=== PATIENT | male | born 1950 | race Caucasian/White ===

== ENCOUNTER 2018-03-18 05:37 | Day surgery (SDC) | payer BC ==
[~2018-03-18 05:37] MED LIST: Buffered Lidocaine 1% SYRIN* 1 ML/SYRINGE INTRADERM ONE
[2018-03-18] MEDS ORDERED: Lactated Ringers 1000 ML Bag* 1,000 ML IV SCH (06:00)
[2018-03-18] MEDS ORDERED: Famotidine IV* 10 MG/ML 2 ML (20 mg) IV ONE (06:00)
[2018-03-18] MEDS ORDERED: ceFAZolin 2 GM PREMIX in ORs 2 GM/50 ML BAG IVPB ONE (06:05)
[2018-03-18] MEDS ORDERED: Famotidine IV* 10 MG/ML 2 ML (20 mg) ONE (06:05)
[2018-03-18] MEDS ORDERED: Ketorolac INJ* 30 MG/ML 1 ML VIAL ONE (07:08)
[2018-03-18] MEDS ORDERED: fentaNYL* 50 MCG/ML 2 ML VIAL (100 MCG VIAL) ONE (07:08)
[2018-03-18] MEDS ORDERED: Lidocaine 0.5%* 50 ML SDV ONE (07:08)
[2018-03-18] MEDS ORDERED: Ondansetron INJ* 2 MG/ML VIAL ONE (07:08)
[2018-03-18] MEDS ORDERED: KETAMINE HCL* 50 MG/ML 10 ML VIAL ONE (07:08)
[2018-03-18] MEDS ORDERED: Midazolam* 1 MG/ML 10 ML VIAL (10 MG) ONE (07:08)
[2018-03-18] MEDS ORDERED: Lidocaine 2% PF * 5 ML VIAL ONE (07:08)
[2018-03-18] MEDS ORDERED: Propofol* 10 MG/ML 20 ML BTL ONE (07:08)
[2018-03-18] MEDS ORDERED: Dexamethasone IV* 4 MG/ML 1 ML (4 MG) ONE (07:08)
[2018-03-18] MEDS ORDERED: Bupivacaine 0.25% SDV PF* 10 ML VIAL INJ ONE (07:21)
[2018-03-18] MEDS ORDERED: ceFAZolin 1 GM ADVAN(*) 1 GM ADDV.VIAL IVPB ONE (07:33)
[2018-03-18 08:34] VITALS: BP 115/56
--- NOTE | 2018-03-19 11:43 | OP ---
DATE OF OPERATION: 03/18/18 - [facility] DATE OF : 52 SURGICAL CARE: Right carpal tunnel. SURGEONF: Benja Matos M.D. ADJUNCT PROFESSOR OF [place] HISTORY: ERIC Egan. ANESTHESIOLOGIST: VISH - Dr. Edu Sotelo. Local anesthetic - Dr. Matos, 0.25% Marcaine with bupivacaine without epinephrine. ANESTHESIA: PRE-OP DIAGNOSIS: Right carpal tunnel syndrome. POST-OP DIAGNOSIS: Right carpal tunnel syndrome. OPERATIVE PROCEDURE: Exploration and decompression of the right median nerve distal forearm, wrist, and hand. COMPLICATIONS: There were no complications. DRAINS: There were no drains. TOURNIQUET: Tourniquet control was utilized on the right forearm. CONDITION: Stable. DISPOSITION: To the recovery room. OPERATIVE INDICATION: Persistent right wrist and hand pain, numbness, tingling , nighttime awakening, positive Tinel's over the median nerve, altered touch sensation in the right middle finger. Also, the patient's history and physical was updated today noting the above symptomatology as well. DESCRIPTION OF PROCEDURE: The patient was brought to the operating room and left on the hospital stretcher. After the administration of IV sedation, the proximal right forearm was wrapped with a tourniquet. The right forearm, wrist , and hand were given a preliminary chlorhexidine prep and then a formal ChloraPrep. After prepping, draping, we did our universal protocol time-out confirming Jose Ramon Burgos and a plan for right carpal tunnel release. We all agreed and we proceeded. The local anesthetic was administered in the ulnar side of the carpal tunnel. The skin and subcu around the planned surgical incision, and the skin and subcu of distal volar forearm and deep to the fascia staying ulnar to the palmaris longus tendon. The skin incision was a 0.5-inch in length in line with the palmaris longus, extended to the proximal palm. Skin and subcu divided down to the palmar fascia. The palmar fascia was divided and the transverse carpal ligament was divided sharply down into the carpal tunnel. We then worked proximally cleaning the deep antebrachial fascia superficially and on the deep side, and then scissors were run up an 1.5-inch proximal to the skin incision. We then worked distally dividing all the tight transverse bands across the median nerves and its branches proximally to the proximal palmar arch. The median nerve had a typical waistband-type constriction. There was some tenosynovitis in the radial and ulnar bursae. The radial tendons were normal. We irrigated some with saline. We then also put in some further bupivacaine into the radial bursa. The skin was then closed with interrupted 3-0 vertical mattress Surgipro sutures. Dressing applied after washing and drying of Betadine soaked release cotton fills, 3- inch Deven, 4-inch Webril, and a 4-inch CLARISSA bandage. The wrist was neutral to slightly extended for the dressing and the procedure was well tolerated. The patient was returned to the recovery area in stable and satisfactory condition, having tolerated the procedure very well. [id number]/[facility] #: [id number] LEE ANN
== END 2018-03-18 09:00 | disposition home or self-care (01) ==
LOC: OR 05:37
PROVIDERS: ATTEND Orthopaedic Surgery
DX: G56.01 Carpal tunnel syndrome, right upper limb (principal); I10 Essential (primary) hypertension; Z87.891 Personal history of nicotine dependence; Z79.899 Other long term (current) drug therapy
CPT/HCPCS: J0690; J1100; J1885; J2250; J2405; J2704; J3010; J3490